=== PATIENT | female | born 1955 | race Caucasian/White ===

== ENCOUNTER 2018-04-08 07:44 | Day surgery (SDC) | payer MEDICARE, MEDICAID ==
[2018-04-08] MEDS ORDERED: Lactated Ringers 1,000 ML IV SCH (08:00)
[2018-04-08] MEDS ORDERED: Sodium Chloride 0.9% 10 ML Syringe FLUSH PRN (08:00)
[2018-04-08] MEDS ORDERED: Dextrose 5%-Lactated Ringers 1,000 ML IV SCH (09:00)
[2018-04-08] MEDS ORDERED: Propofol 200 MG/20 ML SDV IV ONE (09:00)
--- NOTE | 2018-04-08 15:09 | OR ---
DATE OF OPERATION: 04/08/2018 SURGEON: Tu Estrada MD PROCEDURES PERFORMED: EGD with cold forceps biopsy. PREOPERATIVE DIAGNOSIS: Persistent epigastric pain in a type 2 diabetic. POSTOPERATIVE DIAGNOSES: Gastroparesis, gastritis, and mild esophagitis. INDICATIONS FOR PROCEDURE: This is a 62-year-old white female who is referred with the above-mentioned complaints of epigastric abdominal discomfort. She has a longstanding history of type 2 diabetes. Her pain has persisted despite adequate medical treatment. DESCRIPTION OF PROCEDURE: After an excellent IV sedation was administered, the bite block was inserted. The flexible endoscope was passed without difficulty down the patient's esophagus and into the stomach. The stomach was insufflated. The scope was passed through the pylorus to the second portion of the duodenum and slowly withdrawn. The following findings were noted. The duodenum was essentially unremarkable. Stomach demonstrated retained food suggestive of gastroparesis. Mild gastritis was noted throughout and biopsies were taken. GE junction measured approximately 40 cm, and there was some mild esophagitis at the distal esophagus and biopsies were taken here as well. The remainder of our esophageal exam was unremarkable. The stomach was deflated. The scope was removed. We will be adding Reglan to see if this helps with her symptomatology in addition to her other medications. We will have her follow up to go over the biopsy results. /[id number] ESTEFANI/HUE
== END 2018-04-08 10:50 | disposition home or self-care (01) ==
LOC: FB.SDS 07:44
PROVIDERS: ATTEND Surgery
DX: K29.50 Unspecified chronic gastritis without bleeding (principal); E11.43 Type 2 diabetes mellitus with diabetic autonomic (poly)neuropathy; K31.84 Gastroparesis; K20.0 Eosinophilic esophagitis; K21.9 Gastro-esophageal reflux disease without esophagitis; E78.5 Hyperlipidemia, unspecified; Z87.891 Personal history of nicotine dependence; Z79.4 Long term (current) use of insulin; Z79.899 Other long term (current) drug therapy; Z88.0 Allergy status to penicillin; Z88.5 Allergy status to narcotic agent
CPT/HCPCS: 00731; 43239; 82962; 88305; 88313; 88342; J2704; J7042; J7120

== ENCOUNTER 2020-07-06 09:01 | Day surgery (SDC) | payer MEDICARE, MEDICAID ==
[~2020-07-06 09:01] MED LIST: Lactated Ringers 1,000 ML IV SCH; Sodium Chloride 0.9% 10 ML Syringe FLUSH PRN
[2020-07-06] MEDS ORDERED: Propofol 200 MG/20 ML SDV IV ONE (09:02)
[2020-07-06] MEDS ORDERED: Lidocaine 1% PF 2 ML SDV INJECT ONE (09:02)
--- NOTE | 2020-07-06 11:06 | PCM.OPNOTE ---
- General Post-Op/Procedure Note Date of Surgery/Procedure: 07/06/20 Operative Procedure(s): c scope with biospy Findings: poor prep transverse colon polyp Pre Op Diagnosis: screening Post-Op Diagnosis: colon polyp. poor colon prep Anesthesia Technique: MAC Primary Surgeon: Tu Estrada Anesthesia Provider: Juancarlos Gudino Pathology: colon polyp Complications: poor prep Condition: Good Free Text/Narrative:: see dictation
--- NOTE | 2020-07-06 14:45 | OR ---
DATE OF OPERATION: 07/06/2020 SURGEON: Tu Estrada MD PROCEDURE PERFORMED: Colonoscopy. PREOPERATIVE DIAGNOSIS: Need for colon cancer screening. POSTOPERATIVE DIAGNOSIS: Poor prep, transverse colon polyp. INDICATIONS FOR PROCEDURE: This is a 65-year-old white female who presents for screening colonoscopy. She was offered and accepted the same. DESCRIPTION OF OPERATION: After an excellent IV sedation was administered, digital rectal exam was performed. No marked abnormality was noted. Flexible colonoscope was inserted and advanced towards the cecum. Almost immediately on reaching the sigmoid, we encountered liquid stool which had large plant fiber particulate matter. We were able to judiciously advance the scope carefully irrigating and aspirating as we went, we were not able to completely clear, but we did get to approximately the ascending colon. At this point, the scope would become repeatedly clogged with the rather large fragments of vegetable matter and it was evident that we would not be able to irrigate and get an adequate exam of the patient's colon. We therefore elected to terminate the procedure. We slowly withdrew the scope, removing some air. In the transverse colon, a small polypoid lesion was encountered. This was biopsied and submitted, but the remainder of the colonic exam was essentially inadequate. The patient will be rescheduled. She will obviously have to have a modification to the GoLYTELY prep probably including 2 days of a liquid diet including of clear liquid diet the day before that we used split prep. /[id number] /MODL
--- NOTE | 2020-07-12 15:07 | OR ---
DATE OF OPERATION: 07/06/2020 SURGEON: Tu Estrada MD ADDENDUM: PROCEDURE: Colonoscopy with cold forceps biopsy. DESCRIPTION OF OPERATION: Please note that this polyp was biopsied with cold forceps. /[id number] /MODL
== END 2020-07-06 12:15 | disposition home or self-care (01) ==
LOC: FB.SDS 09:01
PROVIDERS: ATTEND Surgery
DX: Z12.11 Encounter for screening for malignant neoplasm of colon (principal); D12.3 Benign neoplasm of transverse colon; E11.9 Type 2 diabetes mellitus without complications; K21.9 Gastro-esophageal reflux disease without esophagitis; Z79.899 Other long term (current) drug therapy; Z88.0 Allergy status to penicillin; Z88.5 Allergy status to narcotic agent; Z87.891 Personal history of nicotine dependence; Z98.890 Other specified postprocedural states
CPT/HCPCS: 00812; 45380; 82962; 88305; J2001; J2704; J7120

== ENCOUNTER 2020-07-13 06:53 | Day surgery (SDC) | payer MEDICARE, MEDICAID ==
[~2020-07-13 06:53] MED LIST changes: -Lactated Ringers 1,000 ML IV SCH
[2020-07-13] MEDS ORDERED: Propofol 200 MG/20 ML SDV IV ONE (06:54)
[2020-07-13] MEDS ORDERED: Lactated Ringers 1,000 ML IV SCH (07:00)
--- NOTE | 2020-07-13 09:20 | PCM.OPNOTE ---
- General Post-Op/Procedure Note Date of Surgery/Procedure: 07/13/20 Operative Procedure(s): c scope Findings: normal exam Pre Op Diagnosis: personal of tubular adenoma Post-Op Diagnosis: nl scope Anesthesia Technique: MAC Primary Surgeon: Tu Estrada Anesthesia Provider: Simón Benites Pathology: none Complications: None Condition: Good Free Text/Narrative:: see dictation
--- NOTE | 2020-07-13 11:46 | OR ---
DATE OF OPERATION: 07/13/2020 SURGEON: Tu Estrada MD PROCEDURE PERFORMED: Colonoscopy. PREOPERATIVE DIAGNOSIS: Personal history of colon polyps. POSTOPERATIVE DIAGNOSIS: Normal exam. INDICATIONS FOR PROCEDURE: Ms. Meza is a 65-year-old white female who last week underwent a colonoscopy. Procedure had to be terminated due to an extremely poor prep. At that time, she was noted to have a small transverse colon polyp which was biopsied. The path report has come back as this being a tubular adenoma. She has repeated the prep with some modifications and presents now for colonoscopy. DESCRIPTION OF OPERATION: After an excellent IV sedation was administered, digital rectal exam was performed. No marked abnormality was noted. The flexible colonoscope was inserted and advanced to the cecum. The following findings were noted: Ascending colon, some areas of liquid stool which we were able to irrigate and get an adequate view of the underlying mucosa. The cecum was identified by anatomic landmarks. No marked mucosal abnormalities were noted. The transverse colon was unremarkable, and in fact, no residual from the previous biopsy was noted. Descending colon, unremarkable. Sigmoid and rectum, unremarkable. Colon was deflated. The scope was removed. The patient tolerated the procedure well. My recommendations on the basis of the biopsy results from last week is that she undergo a repeat colonoscopy in 5 years. /[id number] /WENDIL
== END 2020-07-13 10:03 | disposition home or self-care (01) ==
LOC: FB.SDS 06:53
PROVIDERS: ATTEND Surgery
DX: Z12.11 Encounter for screening for malignant neoplasm of colon (principal); E11.9 Type 2 diabetes mellitus without complications; K21.9 Gastro-esophageal reflux disease without esophagitis; E66.9 Obesity, unspecified; Z79.4 Long term (current) use of insulin; Z86.010 Personal history of colon polyps; Z79.899 Other long term (current) drug therapy; Z88.0 Allergy status to penicillin; Z87.891 Personal history of nicotine dependence; Z90.49 Acquired absence of other specified parts of digestive tract; Z98.890 Other specified postprocedural states; Z68.35 Body mass index [BMI] 35.0-35.9, adult
CPT/HCPCS: 00812-QZ; J2704; J7120

== ENCOUNTER 2025-06-25 08:45 | Day surgery (SDC) | payer MEDICARE ==
[2025-06-25] MEDS: Lactated Ringers 1,000 ML IV SCH (09:20)
== END 2025-06-25 12:35 | disposition home or self-care (01) ==
LOC: FB.SDS 08:45
PROVIDERS: ATTEND Surgery
DX: K57.31 Diverticulosis of large intestine without perforation or abscess with bleeding (principal); R19.4 Change in bowel habit; E11.9 Type 2 diabetes mellitus without complications; Z80.0 Family history of malignant neoplasm of digestive organs; Z88.0 Allergy status to penicillin; Z79.82 Long term (current) use of aspirin; Z79.899 Other long term (current) drug therapy; Z87.891 Personal history of nicotine dependence; Z86.0100 Personal history of colon polyps, unspecified
CPT/HCPCS: 00811; 82947; A9270-GY; J1596; J2003; J2250; J2704; J7120

== ENCOUNTER → 2025-07-20 | Day surgery (SDC) | payer MEDICARE ==
[~2025-07-20] MED LIST changes: +Lactated Ringers 1,000 ML IV ONE; +Lactated Ringers 1,000 ML IV SCH; +Propofol 200 MG/20 ML SDV IV ONE
[2025-07-20] MEDS: Lactated Ringers 1,000 ML IV SCH (08:36)
== END | disposition home or self-care (01) ==
LOC: FB.SDS 07:28
PROVIDERS: ATTEND Surgery
DX: D12.6 Benign neoplasm of colon, unspecified (principal); Q43.9 Congenital malformation of intestine, unspecified; E11.9 Type 2 diabetes mellitus without complications; K21.9 Gastro-esophageal reflux disease without esophagitis; E78.5 Hyperlipidemia, unspecified; Z87.891 Personal history of nicotine dependence; Z86.0101 Personal history of adenomatous and serrated colon polyps; Z80.0 Family history of malignant neoplasm of digestive organs; Z79.899 Other long term (current) drug therapy
CPT/HCPCS: 00811; 88305; A9270-GY; J2003; J2704; J7120